=== PATIENT | female | born 1995 | race Caucasian/White ===

== ENCOUNTER 2018-01-13 14:51 | Emergency (ER) | payer OTHER ==
[2018-01-13] MEDS ORDERED: NS 1,000 ML IV ONE (15:10)
[2018-01-13] MEDS ORDERED: HYDROmorphONE/DILAUDID 2 MG/ML INJ IVP ONE (15:11)
[2018-01-13] MEDS ORDERED: ONDANSETRON 4 MG/2 ML VIAL IVP ONE (15:11)
[2018-01-13] MEDS ORDERED: IOPAMIDOL (ISOVUE-300) 100 ML BTL ONE (15:14)
--- NOTE | 2018-01-13 15:15 | EDPHY ---
H & P Time Seen by Provider: 01/13/18 15:01 HPI/ROS: HPI Abdominal pain. 22-year-old female by private vehicle. This patient reports 3 days of right lower quadrant abdominal pain. She was seen at an urgent care 2 days ago. She had a urinalysis that was done at that time reportedly normal. She was told it was likely an ovarian cyst. The pain has persisted and now worsened today. She has had associated nausea. No diarrhea. Denies bloody or melenic stool. Last meal was 9:00 a.m. This morning. No prior abdominal surgical history. ROS: Constitutional: No fever, no chills. No weakness. Eyes: No discharge. No changes in vision. ENT: No sore throat. No nasal congestion or rhinorrhea. Respiratory: No cough. No shortness of breath. Cardiac: No chest pain, no palpitations. Gastrointestinal: As above, no vomiting, no diarrhea. Genitourinary: No hematuria. No dysuria or increased frequency with urination. Musculoskeletal: No back pain. No neck pain. No myalgias or arthralgias. Skin: No rashes. Neurological: No headache. No focal weakness or altered sensation. Past medical history: Depression. Social history: Nonsmoker. No alcohol. Here by herself. Physical Exam: General Appearance: Alert, no distress. This patient is responding to questions appropriately and in full sentences. This patient appears well- hydrated and well-nourished. Eyes: Pupils equal and round no pallor or injection. No lid edema, erythema or injection. Respiratory: There are no retractions, lungs are clear to auscultation with good air movement bilaterally. Cardiovascular: Regular rate and rhythm. No murmur. Gastrointestinal: Abdomen is soft with moderate tenderness on palpation involving the right lower quadrant, no masses, bowel sounds normal. No focal tenderness at McBurney's point. No Cowart sign. Neurological: Motor sensory function is grossly intact. Cranial nerves are normal. Gait is normal. Skin: Warm and dry, no rashes. Musculoskeletal: Neck is supple and nontender. Extremities are symmetrical. All joints range without pain or impingement. Psychiatric: No agitation. No depression. Database: EKG: Imaging: CT abdomen and pelvis with IV contrast: The appendix is well visualized and is normal. There is some evidence of mesenteric adenitis. She also has a right ovarian adnexal cyst. She is proximally constipated. Otherwise her CT scan is negative. Results were discussed with staff radiologist Dr. Slick Dugan. Procedures: Emergency department course: IV was placed. She was placed on a monitor. Triage vital signs reviewed and are normal. She was started on IV normal saline with 1 L to be given over the next hour. She consents to CT imaging to evaluate for appendicitis. She will initially be given 0.25 mg of IV hydromorphone and 4 mg of IV Zofran. 4:45 p.m., the patient was re-evaluated. Results of her CT imaging and emergency department workup discussed with her in detail. Repeat abdominal exam she is soft with vague tenderness in the right lower quadrant. She feels better with above given pain medication. At this time she feels comfortable going home and I feel she is safe for discharge. Follow-up and return to emergency department precautions have been reviewed with her. All of her questions were answered. She was discharged from the emergency department in good condition. Differential Diagnosis: The differential diagnosis on this patient includes but is not limited to appendicitis, ruptured ovarian cyst, ovarian torsion, ectopic , colitis , ureterolithiasis. This represents a partial list of diagnoses considered. These considerations are based on history, physical exam, past history, reassessment and diagnostic testing. Smoking Status: Never smoked Constitutional: Initial Vital Signs Temperature (C) 37.1 C 01/13/18 14:59 Heart Rate 72 01/13/18 14:59 Respiratory Rate 16 01/13/18 14:59 Blood Pressure 132/74 H 01/13/18 14:59 O2 Sat (%) 97 01/13/18 14:59 O2 Delivery Mode Room Air Allergies/Adverse Reactions: Penicillins Allergy (Verified 01/13/18 15:04) Home Medications: Medication Instructions Recorded Wellbutrin 100mg SR (*) 01/13/18 Medical Decision Making - Data Points Laboratory Results: 01/13/18 15:17 POC Sodium 142 mEq/L mEq/L (135-145) POC Potassium 3.7 mEq/L mEq/L (3.3-5.0) POC Chloride 105.0 mEq/L mEq/L (97-110) POC Total CO2 23 mEq/L mEq/L (22-31) POC BUN 7 mg/dL mg/dL (7-23) POC Creatinine 0.9 mg/dL mg/dL (0.6-1.0) POC Glucose 87 mg/dL mg/dL (70-100) POC Calcium 10.0 mg/dL mg/dL (8.5-10.4) POC Total Bilirubin 0.7 mg/dL mg/dL (0.1-1.4) POC AST 23 IU/L IU/L (14-46) POC ALT 24 IU/L IU/L (9-52) POC Alk Phosphatase 56 IU/L IU/L (38-126) POC Total Protein 7.7 g/dL g/dL (6.3-8.2) POC Albumin 4.6 g/dL g/dL (3.5-5.0) Medications Given: Discontinued Medications Hydromorphone HCl (Dilaudid) 0.25 mg IVP EDNOW ONE Stop: 01/13/18 15:12 Last Admin: 01/13/18 15:27 Dose: 0.25 mg Sodium Chloride (Ns) 1,000 mls @ 0 mls/hr IV EDNOW ONE; Wide Open PRN Reason: Protocol Stop: 01/13/18 15:11 Last Admin: 01/13/18 15:15 Dose: 1,000 mls Ondansetron HCl (Zofran) 4 mg IVP EDNOW ONE Stop: 01/13/18 15:12 Last Admin: 01/13/18 15:24 Dose: 4 mg Point of Care Test Results: Chemistry 01/13/18 15:17 POC Sodium 142 mEq/L mEq/L (135-145) POC Potassium 3.7 mEq/L mEq/L (3.3-5.0) POC Chloride 105.0 mEq/L mEq/L (97-110) POC Total CO2 23 mEq/L mEq/L (22-31) POC BUN 7 mg/dL mg/dL (7-23) POC Creatinine 0.9 mg/dL mg/dL (0.6-1.0) POC Glucose 87 mg/dL mg/dL (70-100) POC Calcium 10.0 mg/dL mg/dL (8.5-10.4) POC Total Bilirubin 0.7 mg/dL mg/dL (0.1-1.4) POC AST 23 IU/L IU/L (14-46) POC ALT 24 IU/L IU/L (9-52) POC Alk Phosphatase 56 IU/L IU/L (38-126) POC Total Protein 7.7 g/dL g/dL (6.3-8.2) POC Albumin 4.6 g/dL g/dL (3.5-5.0) Urine Collection Date 01/13/18 Collection Time 14:10 HCG Results Negative Urine Dip Collection Date 01/13/18 Collection Time 14:10 Specific [place] (1.002-1.030) 1.005 PH (5.0-7.5) 6.5 Leukocytes (Negative) Negative Nitrites (Negative) Negative Protein (Negative) Negative Glucose (Negative) Negative Ketones (Negative) 2+ Urobilnogen (0.2-1.0 EU) 0.2 Bilirubin (Negative) Negative Blood (Negative) Negative Departure - Departure Disposition: Home, Routine, Self-Care Clinical Impression: Abdominal pain, Ovarian cyst, Constipation Condition: Good Instructions: Ovarian Cyst (ED), High Fiber Diet (ED), Constipation (ED) Additional Instructions: Read and follow provided instructions. Follow-up with your primary care physician in 1-2 days for re-evaluation. Ibuprofen dosin mg every 6 hours with meals for the next 3 days only. Take only as needed for pain. Return to the emergency department for worsening pain, fever, vomiting, rectal bleeding or other serious concerns. Referrals: NONE *PRIMARY CARE P,. [Primary Care Provider] - As per Instructions
[2018-01-13 17:05] VITALS: BP 140/78
[2018-01-13 17:10] LABS: PLATELET COUNT 309 10^3/uL (150-400)
== END 2018-01-13 17:05 | disposition home or self-care (01) ==
LOC: CED 14:51
DX: N83.201 Unspecified ovarian cyst, right side (principal); K59.00 Constipation, unspecified
CPT/HCPCS: 74177-PO; 80053-PO; 96374; J1170; J2405; Q9967